=== PATIENT | female | born 1960 | race Caucasian/White ===

== ENCOUNTER 2024-12-31 11:38 | Inpatient (IN) | payer MEDICAID ==
[~2024-12-31] VITALS: Ht 157.5 cm; Wt 45.4 kg
[~2024-12-31 11:38] MED LIST: ATOR10TA PO; BACL10TA2 PO; HYDR-4383 PO; OMEP20CA15 PO; ZOLP5TAB8 PO
[2024-12-31 12:37] LABS: BASOPHILS # (AUTO) 0.1 X10'3 (0-0.2); BASOPHILS % (AUTO) 0.7 % (0-1); EOSINOPHILS % (AUTO) 0.4 % (0-6); HEMATOCRIT 43.4 % (35.0-45.0); HEMOGLOBIN 14.5 g/dl (12.0-16.0); LYMPHOCYTES # (AUTO) 2.1 X10'3 (1.1-4.8); LYMPHOCYTES % (AUTO) 21.8 % (21-51); MEAN CORPUSCULAR HEMOGLOBIN 29.8 PG (27.0-31.0); MEAN CORPUSCULAR HGB CONC 33.4 g/dL (33.0-36.5); MEAN CORPUSCULAR VOLUME 89.4 FL (78-98); MEAN PLATELET VOLUME 10.1 FL (7.4-10.4); MONOCYTES # (AUTO) 0.7 X10'3 (0-0.9); MONOCYTES % (AUTO) 7.2 % (2-12); NEUTROPHILS # (AUTO) 6.8 X10'3 (1.8-7.7); NEUTROPHILS % (AUTO) 69.9 % (42-75); PLATELET COUNT 290 X10'3 (140-440); RED BLOOD COUNT 4.86 X10'6 (4.20-5.60); RED CELL DISTRIBUTION WIDTH 13.9 % (11.5-14.5); WHITE BLOOD COUNT 9.7 X10'3 (4.5-11.0)
[2024-12-31 12:48] LABS: ALANINE AMINOTRANSFERASE 25 U/L (12-78); ALBUMIN 3.9 G/DL (3.4-5.0); ALBUMIN/GLOBULIN RATIO 1.4 (1.1-1.5); ALKALINE PHOSPHATASE 117 IU/L (46-116); ANION GAP 7 (8-16); ASPARTATE AMINO TRANSFERASE 15 U/L (10-37); BILIRUBIN,TOTAL 0.5 MG/DL (0.1-1.0); BLOOD UREA NITROGEN 13 MG/DL (7-18); BUN/CREATININE RATIO 15.3 (10.0-20.0); CALCIUM 10.7 MG/DL (8.5-10.1); CHLORIDE 104 MMOL/L (99-107); CREATININE 0.85 MG/DL (0.40-0.90); GLUCOSE 120 MG/DL (70-104); LIPASE 90 U/L (16-77); SODIUM 141 MMOL/L (135-145); TOTAL CARBON DIOXIDE 30.3 MMOL/L (24-32); TOTAL PROTEIN 6.7 G/DL (6.4-8.2); eCRCL 48 ML/MIN; eGFR 67 ML/MIN
--- NOTE | 2024-12-31 13:12 | Physician Documentation ---
History of Present Illness Chief Complaint: Abdominal Pain Stated Complaint: ABDOMINAL PAIN Time Seen by MD: 12:23 Primary Medical Doctor: endy Mode of Arrival: POV HPI 64-year-old female history of tobacco use disorder 50 pack-year history presenting for abdominal pain. She reports epigastric pain radiating through to her back which follows eating. This has been ongoing persistent for the last 3 weeks. She was started on Prilosec by your PCP and has had no improvement in her symptoms. She has no history of similar. She also reports 7 lb weight loss over the last 2 weeks Medication Reconciliation Allergies: Coded Allergies: No Known Allergies (Unverified , 02/12/15) Scheduled Atorvastatin Calcium (Lipitor), 1 TAB PO DAILY, (Reported) Omeprazole (Omeprazole), 1 CAP PO DAILY, (Reported) Discontinued Medications Atorvastatin Calcium (Lipitor), Unknown Dose PO DAILY, (Reported) Discontinued Reason: Other Baclofen (Baclofen), 1 TAB PO DAILY, (Reported) Discontinued Reason: patient no longer taking Hydrocodone/Acetaminophen (Outlook 5-325 Tablet), 1 TABLET PO TID, (Reported) Discontinued Reason: patient no longer taking Zolpidem Tartrate* (Ambien*), 1 TAB PO HS PRN for sleep, (Reported) Discontinued Reason: patient no longer taking Review of Systems All Other Systems at this time: Reviewed and Negative Physical Exam Vital Signs: Temperature: 97.9, Source: Oral, Heart Rate: 84, Respiratory Rate: 16, BP: 142/85, Pulse Oximetry: 97, Weight: 45.400 Oxygen Flow Rate: 0 Physical Exam Epigastric tenderness to palpation. No guarding no rebound Neuro awake alert oriented Progress Progress Note Labs independently interpreted show mildly elevated lipase normal LFTs Results/Orders Reviewed/noted all lab results: Yes Results/Orders Orders - JOSE MOHAMUD MD Urinalysis, Cult If Indicated (12/31/24 12:03) Hcg, Ur Ql (12/31/24 12:03) Completed Orders - JOSE MOHAMUD MD Cbc/Diff (12/31/24 12:03) BMP (12/31/24 12:03) Lipase (12/31/24 12:03) CMP (12/31/24 12:03) Vital Signs 5/17/25 5/17/25 5/17/25 11:57 12:24 12:33 Temp 97.9 Pulse 98 84 Resp 18 16 16 B/P (MAP) 135/73 142/85 (104) Pulse Ox 98 97 O2 Flow Rate 0 Laboratory Tests Test 12/31/24 12:17 White Blood Count 9.7 Red Blood Count 4.86 Hemoglobin 14.5 Hematocrit 43.4 Mean Corpuscular Volume 89.4 Mean Corpuscular Hemoglobin 29.8 Mean Corpuscular Hemoglobin Concent 33.4 Red Cell Distribution Width 13.9 Platelet Count 290 Mean Platelet Volume 10.1 Neutrophils (%) (Auto) 69.9 Lymphocytes (%) (Auto) 21.8 Monocytes (%) (Auto) 7.2 Eosinophils (%) (Auto) 0.4 Basophils (%) (Auto) 0.7 Neutrophils # (Auto) 6.8 Lymphocytes # (Auto) 2.1 Monocytes # (Auto) 0.7 Eosinophils # (Auto) 0.0 Basophils # (Auto) 0.1 CBC Comment Sodium Level 141 Potassium Level 4.0 Chloride Level 104 Carbon Dioxide Level 30.3 Anion Gap 7 L Blood Urea Nitrogen 13 Creatinine 0.85 Estimated GFR/1.73 m2 67 BUN/Creatinine Ratio 15.3 Glucose Level 120 H Calcium Level 10.7 H Total Bilirubin 0.5 Aspartate Amino Transf (AST/SGOT) 15 Alanine Aminotransferase (ALT/SGPT) 25 Alkaline Phosphatase 117 H Total Protein 6.7 Albumin 3.9 Globulin 2.8 Albumin/Globulin Ratio 1.4 Lipase 90 H Chemistry Comments Re-Evaluation Re-Evaluation : Progress Consulted hospitalist who agreed with plan for admission EKG/XRAY/CT/US/VASC/MRI CT : Impression Independently interpreted CT abdomen and pelvis, peripancreatic haziness and mass of pancreas Medical Decision Making Additional Comments Pancreatitis, cholecystitis, pancreatic mass Departure Disposition: ADMITTED INPATIENT Admitted to Inpatient Unit: to hospitalist Impression: Primary Impression: Pancreatic mass Referrals: NO PRIMARY CARE PROVIDER (PCP) Signature Scribe Signature: No scribe Attestation: No scribe JOSE MOHAMUD MD December 31, 2024 13:12
[2024-12-31 14:28] LABS: BILIRUBIN,URINE NEGATIVE (Neg); CLARITY,URINE SLIGHTLY CLOUDY (Clear); COLOR,URINE YELLOW (Yellow); GLUCOSE, URINE NEGATIVE (Neg); KETONES,URINE TRACE mg/dl (Neg); LEUKOCYTE ESTERASE ,URINE NEGATIVE (Neg); NITRITES, URINE NEGATIVE (Neg); OCCULT BLOOD,URINE NEGATIVE (Neg); PH,URINE 6.5 (4.8-8.0); PROTEIN,URINE NEGATIVE (Neg); URINE HCG NEGATIVE (NEG); UROBILINOGEN,URINE 0.2 E.U/dL (0.2-1.0)
[2024-12-31 14:31] LABS: UA COLLECTION TYPE NON-SPECIFIED
[2024-12-31 14:40] LABS: BACTERIA,URINE FEW /HPF (Neg); MUCUS STRANDS NONE SEEN /LPF (Neg); RBC,URINE 0-2 /HPF (0-2); SQUAMOUS EPITHELIAL CELL,UR FEW /LPF (FEW); WBC,URINE 0-4 /HPF (0-4)
[2024-12-31 14:41] LABS: AMORPHOUS URATES 2+
[2024-12-31] MEDS: ketorolac trometh 15mg/ml vial 15 MG/ML ML IV ONE (15:27)
--- NOTE | 2024-12-31 15:55 | RADIOLOGY REPORT ---
INDICATION: abdominal pain TECHNIQUE: Multiple real-time sonographic images of the right upper quadrant abdomen were obtained. COMPARISON: None FINDINGS: Liver is homogenous in echogenicity. The liver measures 13.0 cm. No intrahepatic biliary ductal dilatation is noted. The gallbladder wall measures 0.2 cm and is unremarkable. No gallstones or gallbladder sludge. No pericholecystic fluid or edema. The common duct measures 0.6 cm and is unremarkable. The right kidney measures 9.0 cm. No hydronephrosis. The pancreas is not well visualized due to obscuration from bowel gas. The visualized portions of the IVC and aorta are grossly unremarkable. IMPRESSION: 1. Normal exam of the abdomen.
[2024-12-31] MEDS ORDERED: iohexol 300mg/ml 100ml inj. ONE (16:12)
--- NOTE | 2024-12-31 17:56 | RADIOLOGY REPORT ---
Exam: CT CT ABDOMEN PELVIS W/ IV CONTRAST History: abdominal pain Comparison Study: None TECHNIQUE: Multidetector CT of the abdomen was performed from lung bases to pubic symphysis. Imaging was performed with IV contrast. Axial, coronal and sagittal multiplanar reformats were obtained from the axial data set by the technologist. Radiation Dose Information: CT Dose: CTDI volume is 5.59 mGy. Dose-length product is 256.62 mGy*cm FINDINGS: Bibasilar atelectasis. Partially visualized heart is unremarkable. Nonspecific area of hypodensity within the left hepatic lobe adjacent to the falciform ligament. Oth erwise, liver, spleen, gallbladder, and adrenal glands unremarkable. Ill-defined Area of hypodensity measuring about 3.5 x 3.3 x 3.5 cm partially involving the uncinate of the pancreas and partially ove rlying the adjacent duodenum with fat stranding adjacent to the distal duodenum. There is subtle hete rogeneous area the uncinate measuring about 2.6 x 2.3 cm which is better appreciated on the coronal v iew. Subcentimeter hypodense left renal lesion that is too small to characterize. Scarring of the lower po le of the right kidney with associated adjacent coarse calcification. Ureters and urinary bladder unr emarkable. Uterus and adnexa unremarkable. Mild gastric wall thickening. Fat stranding adjacent to the distal duodenum. With a moni ill-defined hypodensity partially involving the uncinate process extending over to the adjacent duodenum. Mild wall thickening of proximal jejunum. The remainder of the small bowel loops unremarkable. The ap pendix is unremarkable. Sigmoid diverticulosis without diverticulitis. Mild wall thickening of the si gmoid with adjacent fat stranding/ edema. No evidence of intraperitoneal free air. No evidence of aortic aneurysm or dissection. [id number] atherosclerotic calcification of the aorta with mild atherosclerotic calcification of bilateral iliacs. No significant lymphadenopathy. The soft tissues are unremarkable. No destructive osseous lesions are noted. IMPRESSION: Ill-defined Area of hypodensity measuring about 3.5 x 3.3 x 3.5 cm partially involving the uncinate o f the pancreas and partially overlying the adjacent duodenum with fat stranding adjacent to the dista l duodenum and subtle heterogeneous area overthe uncinate measuring about 2.6 x 2.3 cm. Finding may r epresent neoplasm of the uncinate with associated stranding.MRI with contrast is recommended for furt her evaluation. Mild wall thickening of the stomach and proximal jejunum which may be due to inadequate distention wi th gastroenteritis not excluded. Sigmoid diverticulosis with mild wall thickening of the sigmoid and adjacent edema. Correlate for si gmoiditis/diverticulitis.
[2024-12-31] MEDS: ringers solution, lacted 1,000 ML IV ONE (18:18)
[2024-12-31] MEDS ORDERED: ATOR20TA PO (19:58)
[2024-12-31] MEDS ORDERED: morphine 2 MG/ML inj. syringe IV PRN (20:25)
[2024-12-31] MEDS ORDERED: potassium Cl 40MEQ/1/2NS 520ml 520 ML IV PRN (20:25)
[2024-12-31] MEDS ORDERED: ondansetron/PF 4mg/2ml inj IV PRN (20:25)
[2024-12-31] MEDS ORDERED: magnesium hydroxide 30ml (MOM) UD suspension PO PRN (20:25)
[2024-12-31] MEDS ORDERED: magnesium sulf-water 4G/100mL 100 ML IV PRN (20:25)
[2024-12-31] MEDS ORDERED: magnesium sulf-water 2g/50mL 50 ML IV PRN (20:25)
[2024-12-31] MEDS ORDERED: mag hydrox/Alum hydrox/simeth 30ml oral suspension PO PRN (20:25)
[2024-12-31] MEDS ORDERED: magnesium Cl slow-release 64mg tablet PO PRN (20:25)
[2024-12-31] MEDS ORDERED: potassium Cl 20 mEq SR tablet PO PRN ×2 (20:25)
[2024-12-31] MEDS ORDERED: acetaminophen 325mg tablet PO PRN (20:25)
[2024-12-31] MEDS: ringers solution, lacted 1,000 ML IV SCH (20:36)
--- NOTE | 2024-12-31 20:39 | HISTORY AND PHYSICAL-Residence ---
History & Physical Providers to CC Resident Creating Document: LEXII BEAL, RES ~ History of Present Illness Primary Medical Doctor: endy Reason for Admit\Complaint: Pancreatitis/pancreatic carcinoma History of Present Illness This is a 64-year-old female with past medical history of GERD, came to the ER with a chief complaint of nausea, vomiting and abdominal pain. The nausea and vomiting started about four weeks ago, initially had about two episodes per day, now reduced to one episode in two days, contains mostly food particles and water, usually occurs within 15 minutes after eating. The abdominal pain also started around the same time, located in the epigastric region. She described the pain as crampy type, intermittent, graded6/10, occurs mostly after eating or drinking something. The pain started radiating to the back in the last 3-4 days. About two weeks ago she visited her PCP, blood and stool test was done which were apparently normal. It was thought that the pain was likely secondary to GERD. Denied any diarrhea, fever. Denied any recent travel history, contact with sick people. Denied any generalized pruritus, pale stools, dark urine. Reported that in July of last year she had similar symptoms of nausea, vomiting and abdominal pain for a week which resolved spontaneously. She also lost about 8 lbs weight in the last month. Also reports weakness and fatigue. Allergies: Coded Allergies: No Known Allergies (Unverified , 02/12/15) Home Medications Home Medications Active Reported Lipitor (Atorvastatin Calcium) 20 Mg Tablet 1 Tab PO DAILY Omeprazole 20 Mg Capsule.dr 1 Cap PO DAILY Past Medical History Past Medical History GERD Hyperlipidemia Past Surgical History Surgical History Comment C section Family History Family History: FH: breast cancer MOTHER Past Social History Social History Comment Started smoking at the age of 12-13 years, previously smoked about a pack a day, currently reduced to five cigarettes a day Quit drinking alcohol in 2008, was a heavy drinker up to 1993, was an occasional drinker from [id number]. Smokes marijuana on a daily basis. Denies any other drug usage. Lives alone, functionally independent, her eldest son lives in [place]. Currently working. ROS All Other Systems: Reviewed and Negative Constitutional: Reports: weakness Eyes: Denies: no symptoms reported, see HPI, pain, discharge, blurred vision, double vision, itching, photophobia, redness, tearing, other ENT: Denies: no symptoms reported, see HPI, ear pain, ear bleeding, ear discharge, hearing loss, ear ringing, nose pain, nose bleeding, nose congestion, nose discharge, throat pain, throat swelling, voice change, mouth pain, mouth bleeding, mouth swelling, other Respiratory: Denies: no symptoms reported, see HPI, cough, orthopnea, shortness of breath, SOB with exertion, SOB at rest, stridor, wheezing, hemoptysis, pain with breathing, other Cardiovascular: Denies: no symptoms reported, see HPI, chest pain, left arm pain, diaphoresis, lightheadedness, syncope, edema, palpitations, irregular heart rate, other Gastrointestinal: Reports: abdominal pain, nausea, vomiting Genitourinary: Denies: no symptoms reported, see HPI, burning, discharge, dysuria, frequency, flank pain, hematuria, incontinence, pain, decreased urine output, urgency, other Female Genitalia: Denies: no reported symptoms, see HPI, vaginal discharge, vaginal pain, pelvic pain, abnormal bleeding, dyspareunia, , other Neurological: Denies: no symptoms reported, see HPI, speech problem, headache, dizziness, fainting, tingling, left sided numbness, right sided numbness, left sided weakness, right sided weakness, problems walking, unable to move lower ext, unable to move upper ext, petit mal seizures, tonic-clonic seizures, cognitive dysfunction, other Musculoskeletal: Denies: no symptoms reported, see HPI, pain, swelling, back pain, gout, joint pain, joint swelling, muscle pain, muscle swelling, muscle stiffness, neck pain, other Exam Vitals: Vital Signs Date Time Temp Pulse Resp B/P (MAP) Pulse Ox O2 Delivery O2 Flow Rate FiO2 12/31/24 19:46 64 16 155/76 (102) 95 12/31/24 18:24 98.1 0 General: General: Awake and Alert, no acute distress. HEENT: Conjunctiva pink, Sclera clear, Mucus Membranes moist. Resp: Unlabored. Bilateral breath sounds are clear Heart: Regular Rate and rhythm, normal S1 and S2, no murmur Abdomen: Soft, tenderness present in the epigastric region, no guarding, no rigidity, normal bowel sounds. Extremities: No pedal edema, no cyanosis, no clubbing SENIOR PHARMACY TECHNICIAN: Conscious, coherent, alert and oriented x4. No motor or sensory deficits noted. No motor drift noted. No cranial nerve deficits noted. Skin: Warm and Dry. No jaundice Diagnostic Data Last Recorded Lab Results: 12/31/24 1217 12/31/24 1217 Advance Care Planning Advanced Care plannin - 30 Minutes (I spent 17 minutes in discussing various resuscitative measures, the patient chose to be full code.) Additional Plan Assessment This is a 64-year-old female with a history of GERD, chronic smoking came to the ER with a chief complaint of abdominal pain radiating to back, nausea, vomiting. Lipase levels are elevated, abdominal CT showed mass in the uncinate process of pancreas. Patient is being admitted for possible pancreatitis/pancreatic cancer. Plan Acute pancreatitis Pancreatic adenocarcinoma. Lipase level 90. Alkaline phosphatase 117 Abdominal ultrasound did not show any significant findings Abdomen/pelvis CT hypodensity measuring about 3.5 x 3.3 x 3.5 cm partially involving the uncinate of the pancreas.subtle heterogeneous area overthe uncinate measuring about 2.6 x 2.3 cm.Finding may represent neoplasm of the uncinate with associated stranding. MRI with contrast ordered. Received 1 L of LR in the ER. Started on LR@ 100 mL/hour Started on clear liquid diet. Pain management-morphine p.r.n. History of GERD Started on pantoprazole 40 mg IV daily Hyperlipidemia Continue patient's home medication atorvastatin. Code status: Full code DVT prophylaxis: Lovenox GI prophylaxis: Pantoprazole Lines/tubes: Peripheral IV Diet: Clear liquid diet Prognosis: Poor Lexii Beal M.D PGY1 Patient seen and evaluated using [facility] complaint AV device Discussed with the resident Agree with the plan as discussed with the resident. Cl Torres MD Date of Service: December 31, 2024 Billing Provider: CL TORRES MD, PRAVAHIKA, ELVIN December 31, 2024 20:39 CL TORRES MD January 01, 2025 02:29
[2024-12-31] MEDS: morphine 2 MG/ML inj. syringe IV PRN (20:59)
[2024-12-31 21:04] LABS: MAGNESIUM 2.2 MG/DL (1.5-2.4)
[2024-12-31 21:10] LABS: HEMOGLOBIN A1C 5.8 % (4.5-6.2)
[2024-12-31 22:00] VITALS: BP 131/78; PULSE 70; RESP 16; TEMP 98.2; O2SAT 98
[2025-01-01 05:48] VITALS: RESP 16; O2SAT 98
[2025-01-01 06:00] VITALS: BP 126/85; PULSE 82; RESP 16; TEMP 97.7; O2SAT 96
[2025-01-01 06:02] LABS: BASOPHILS # (AUTO) 0.1 X10'3 (0-0.2); BASOPHILS % (AUTO) 0.9 % (0-1); EOSINOPHILS # (AUTO) 0.2 X10'3 (0-0.9); EOSINOPHILS % (AUTO) 1.7 % (0-6); HEMATOCRIT 40.2 % (35.0-45.0); HEMOGLOBIN 13.5 g/dl (12.0-16.0); LYMPHOCYTES # (AUTO) 2.2 X10'3 (1.1-4.8); LYMPHOCYTES % (AUTO) 24.4 % (21-51); MEAN CORPUSCULAR HEMOGLOBIN 29.7 PG (27.0-31.0); MEAN CORPUSCULAR HGB CONC 33.6 g/dL (33.0-36.5); MEAN CORPUSCULAR VOLUME 88.2 FL (78-98); MEAN PLATELET VOLUME 10.1 FL (7.4-10.4); MONOCYTES # (AUTO) 0.6 X10'3 (0-0.9); MONOCYTES % (AUTO) 6.5 % (2-12); NEUTROPHILS # (AUTO) 6.1 X10'3 (1.8-7.7); NEUTROPHILS % (AUTO) 66.5 % (42-75); PLATELET COUNT 253 X10'3 (140-440); RED BLOOD COUNT 4.56 X10'6 (4.20-5.60); RED CELL DISTRIBUTION WIDTH 13.7 % (11.5-14.5); WHITE BLOOD COUNT 9.2 X10'3 (4.5-11.0)
[2025-01-01 06:53] LABS: ALANINE AMINOTRANSFERASE 19 U/L (12-78); ALBUMIN 3.1 G/DL (3.4-5.0); ALBUMIN/GLOBULIN RATIO 1.3 (1.1-1.5); ALKALINE PHOSPHATASE 99 IU/L (46-116); ANION GAP 7 (8-16); ASPARTATE AMINO TRANSFERASE 17 U/L (10-37); BILIRUBIN,TOTAL 0.6 MG/DL (0.1-1.0); BLOOD UREA NITROGEN 7 MG/DL (7-18); BUN/CREATININE RATIO 10.9 (10.0-20.0); CALCIUM 9.4 MG/DL (8.5-10.1); CHLORIDE 107 MMOL/L (99-107); CHOL/HDL RATIO 2.3 (0.00-4.99); CHOLESTEROL 97 MG/DL (0-200); CREATININE 0.64 MG/DL (0.40-0.90); GLUCOSE 93 MG/DL (70-104); HDL CHOLESTEROL 42 MG/DL (35-60); LDL CHOLESTEROL 42 MG/DL (50-100); MAGNESIUM 1.9 MG/DL (1.5-2.4); POTASSIUM 3.8 MMOL/L (3.5-5.1); SODIUM 142 MMOL/L (135-145); TOTAL CARBON DIOXIDE 28.2 MMOL/L (24-32); TOTAL PROTEIN 5.5 G/DL (6.4-8.2); TRIGLYCERIDES 83 MG/DL (20-135); eCRCL 64 ML/MIN; eGFR > 90 ML/MIN
[2025-01-01] MEDS: atorvastatin 20mg tablet PO SCH (08:00)
[2025-01-01] MEDS: docusate sod 100mg capsule PO SCH (08:00)
[2025-01-01] MEDS: K and/or MAG REPLACEMENT MC SCH (08:00)
[2025-01-01] MEDS: enoxaparin 40mg/0.4ml syringe SUBCUT SCH (08:00)
[2025-01-01 08:32] VITALS: RESP 16; O2SAT 95
[2025-01-01] MEDS: pantoprazole 40 MG vial IV SCH (09:21)
[2025-01-01 10:30] VITALS: BP 151/74; PULSE 70; RESP 18; TEMP 98.1; O2SAT 96
--- NOTE | 2025-01-01 13:30 | RADIOLOGY REPORT ---
PROCEDURE: MR MRI ABDOMEN Indication: Pancreatic cancer COMPARISON: US ULTRASOUND OF ABDOMEN on DOS: 12/31/24, CT abdomen 12/31/2024 TECHNIQUE: Multiplanar multisequence images of the abdomen are obtained with and without contrast. FINDINGS: Ill-defined lesion near the pancreatic body /uncinate process region measuring 3.5 x 3.4 cm partially encasing the mid SMA. This lesion is slightly hypoenhancing relative to the rest of the hepatic pare nchyma. The pancreatic duct appears to be nondilated. Lesion appears centered in the mesentery just a djacent to the pancreatic body/ uncinate process/ 4th segment of the duodenum. There is mild edema wi thin the mesentery and surrounding the jejunal loops. Adrenal glands, spleen unremarkable. Kidneys demonstrate no hydronephrosis. Left renal cyst measurin g 7 mm. No T2 hyperintense lesions in the liver. No evidence for cholelithiasis. IMPRESSION: 1. Ill-defined lesion near the pancreatic body /uncinate process measuring 3.5 x 3.4 cm, again concer alma for pancreatic /mesenteric/small-bowel neoplasm. Recommend GI and surgical consultation for fur ther evaluation, and management. This partially encases the SMA. This can be further evaluated with e ndoscopic ultrasound 2. Pancreatic duct nondilated/ normal in caliber.
[2025-01-01] MEDS: GADOTERATE MEGLUMINE 7.5 MMOL/15 ML VIAL IV ONE (16:22)
--- NOTE | 2025-01-01 16:35 | PROGRESS NOTE ---
Daily Progress Note Providers to CC ~ Antibiotic Timeout Antibiotic Ordered?: No Subjective No acute events overnight. Patient examined at bedside. No new complaints not in acute distress. Patient reports abdominal pain but denies chest pain, sob, palpitations, n/v/d. Nausea and vomiting resolved. MRI abdomen shows lesions near pancreatic body measuring 3.5 x 3.4cm concerning for a pancreatic/mesenteric/small bowel neoplasm, partially encasing SMA. Case discussed with GI Dr. Spence, recommends for EUS. Pending referral to endoscopy center for evaluation. Objective Vital Signs Date Time Temp Pulse Resp B/P (MAP) Pulse Ox O2 Delivery O2 Flow Rate FiO2 01/01/25 13:08 16 01/01/25 10:30 98.1 70 151/74 (99) 96 Room Air 01/01/25 08:32 0.0 Result Diagram: 01/01/25 0514 01/01/25 0514 Physical Exam General: Generalized weakness, A&Ox3, NAD HEENT: Normocephalic, PERRLA Neck: Supple, trachea midline, no JVD Chest: Clear to auscultation bilaterally Cardiovascular: RRR, S1&S2 GI: Tender upper quadrants of abdomen with palpation; negative rebound tenderness Extremities: No cyanosis/clubbing/or edema GROUP PROGRAM MANAGER: CN II-XII intact, no focal deficits Musculoskeletal: No paraspinal muscle tenderness, no muscle spasm Skin: Warm and intact Problem\Assessment\Plan This is a 64-year-old female with a history of HLD, GERD, chronic smoking came to the ER with a chief complaint of abdominal pain radiating to back, nausea, vomiting. Lipase levels are elevated, abdominal CT showed mass in the uncinate process of pancreas. Patient is being admitted for possible pancreatitis/pancreatic cancer. # Acute pancreatitis # Pancreatic adenocarcinoma -CT shows hypodensity measuring about 3.5 x 3.3 x 3.5 cm partially involving the uncinate of the pancreas.subtle heterogeneous area overthe uncinate measuring about 2.6 x 2.3 cm.Finding may represent neoplasm of the uncinate with associated stranding. -MRI shows lesions near pancreatic body measuring 3.5x3.4cm concerning for a pancreatic/mesenteric/small bowel neoplasm, partially encasing SMA. Pending referral to endoscopy center for evaluation. # Hyperlipidemia -LDL 42, continue home statin Code status: Full code DVT/VTE Prophylaxis: Lovenox Date of Service: January 01, 2025 Billing Provider: LUI PLAZA Common Visit Codes: [id number] INP/OBS CARE(HIGH) LUI PLAZA January 01, 2025 16:35
[2025-01-01 18:00] VITALS: BP 146/77; PULSE 82; RESP 16; TEMP 98; O2SAT 96
[2025-01-01 22:00] VITALS: BP 136/65; PULSE 86; RESP 20; TEMP 98.2; O2SAT 95
[2025-01-02 06:55] VITALS: BP 144/69; PULSE 78; RESP 18; TEMP 97.9; O2SAT 93
[2025-01-02 06:59] LABS: BASOPHILS # (AUTO) 0.1 X10'3 (0-0.2); EOSINOPHILS # (AUTO) 0.1 X10'3 (0-0.9); EOSINOPHILS % (AUTO) 1.6 % (0-6); HEMATOCRIT 41.4 % (35.0-45.0); HEMOGLOBIN 13.9 g/dl (12.0-16.0); LYMPHOCYTES # (AUTO) 1.7 X10'3 (1.1-4.8); LYMPHOCYTES % (AUTO) 23.4 % (21-51); MEAN CORPUSCULAR HEMOGLOBIN 29.9 PG (27.0-31.0); MEAN CORPUSCULAR HGB CONC 33.6 g/dL (33.0-36.5); MEAN CORPUSCULAR VOLUME 88.8 FL (78-98); MEAN PLATELET VOLUME 9.6 FL (7.4-10.4); MONOCYTES # (AUTO) 0.5 X10'3 (0-0.9); MONOCYTES % (AUTO) 7.5 % (2-12); NEUTROPHILS # (AUTO) 4.8 X10'3 (1.8-7.7); NEUTROPHILS % (AUTO) 66.5 % (42-75); PLATELET COUNT 250 X10'3 (140-440); RED BLOOD COUNT 4.66 X10'6 (4.20-5.60); RED CELL DISTRIBUTION WIDTH 13.6 % (11.5-14.5); WHITE BLOOD COUNT 7.2 X10'3 (4.5-11.0)
[2025-01-02 07:33] LABS: ALANINE AMINOTRANSFERASE 21 U/L (12-78); ALBUMIN 3.1 G/DL (3.4-5.0); ALBUMIN/GLOBULIN RATIO 1.2 (1.1-1.5); ALKALINE PHOSPHATASE 106 IU/L (46-116); ANION GAP 6 (8-16); ASPARTATE AMINO TRANSFERASE 14 U/L (10-37); BILIRUBIN,TOTAL 0.5 MG/DL (0.1-1.0); BLOOD UREA NITROGEN 4 MG/DL (7-18); BUN/CREATININE RATIO 8.3 (10.0-20.0); CALCIUM 9.5 MG/DL (8.5-10.1); CHLORIDE 106 MMOL/L (99-107); CREATININE 0.48 MG/DL (0.40-0.90); GLUCOSE 93 MG/DL (70-104); MAGNESIUM 1.9 MG/DL (1.5-2.4); POTASSIUM 3.9 MMOL/L (3.5-5.1); SODIUM 140 MMOL/L (135-145); TOTAL CARBON DIOXIDE 27.6 MMOL/L (24-32); TOTAL PROTEIN 5.6 G/DL (6.4-8.2); eCRCL 85 ML/MIN; eGFR > 90 ML/MIN
[2025-01-02] MEDS ORDERED: HYDR-3965 PO (10:03)
--- NOTE | 2025-01-02 13:31 | DISCHARGE SUMMARY ---
Discharge Summary Providers to CC ~ Discharge Summary Admission Diagnosis: pancreatic carcinoma Hospital Course DATE OF ADMISSION: 12/31/24 DATE OF DISCHARGE: 01/02/25 Discharge Diagnosis\\Comment: Pancreatic adenocarcinoma Acute pancreatitis Hyperlipidemia Operations\\Procedures: None Consultants: GI Dr. Pierre Complications: None Condition on DC: Stable New Medications: Hydrocodone Bit/Acetaminophen 5/325 MG (Jeddo 5/325 MG) 5 Mg/325 Mg Tablet 1 TAB PO Q8H PRN for moderate or severe pain for 3 Days, #9 TAB Continued Medications: Atorvastatin Calcium (Lipitor) 20 Mg Tablet 1 TAB PO DAILY, TAB 0 Refills Discontinued Medications: Omeprazole (Omeprazole) 20 Mg Capsule.dr 1 CAP PO DAILY, #30 CAP 5 Refills Discharge Summary: History of Present Illness From H&P: Nora Doyle is a "64-year-old female with past medical history of GERD, came to the ER with a chief complaint of nausea, vomiting and abdominal pain. Nausea and vomiting started about four weeks ago, initially had about two episodes per day, now reduced to one episode in two days, contains mostly food particles and water, usually occurs within 15 minutes after eating. The abdom inal pain also started around the same time, located in the epigastric region. She described the pain as crampy type, intermittent, graded6/10, occurs mostly after eating or drinking something. The pain started radiating to the back in the last 3-4 days. About two weeks ago she visited her PCP, blood and stool test was done which were apparently normal. It was thought that the pain was likely secondary to GERD. Denied any diarrhea, fever. Denied any recent travel history, contact with sick people. Denied any generalized pruritus, pale stools, dark urine. Reported that in July of last year she had similar symptoms of nausea, vomiting and abdominal pain for a week which resolved spontaneously. She also lost about 8 lbs weight in the last month. Also reports weakness and fatigue." Hospital Course Gastric findings were notable for elevated lipase combined with abdominal pain, CT indicating lesions measuring approximately 3.5 x 3.3 x 3.5 cm partially involving the uncinate of the pancreas.subtle heterogeneous area over the uncinate measuring about 2.6 x 2.3 cm that suggest neoplasm. Subsequent MRI revealed consistent findings of lesions near pancreatic body measuring 3.5 x 3.4cm concerning for a pancreatic/mesenteric/small bowel neoplasm, partially encasing SMA. Patient was treated with intravenous fluids and supportive care. Case discussed with on-call GI Dr. Pierre. Patient's reported abdominal pain improved and nausea and vomiting resolved. Patient requires endoscopic ultrasound which can be done at the endoscopy center. Patient did not experience further complications throughout the entire hospital stay. Patient was seen and examined on the day of discharge. On day of discharge, vss and labs unremarkable. All labs, diagnostic workups, discharge plan discussed with patient in details during visit before discharge. All questions and concerns answered to the best of my professional knowledge. Patient is to be discharged to home to self and to follow-up with PCP, GI Dr. Pierre, and at endoscopy center for biopsy within 2 weeks. Physical Exam General: A&Ox3, NAD HEENT: Normocephalic, PERRLA Neck: Supple, trachea midline, no JVD Chest: Clear to auscultation bilaterally Cardiovascular: RRR, S1&S2 GI: Mildly tender upper quadrants of abdomen with palpation; negative rebound tenderness Extremities: No cyanosis/clubbing/or edema CATHETER FINISHER AND INSPECTOR: CN II-XII intact, no focal deficits Musculoskeletal: No paraspinal muscle tenderness, no muscle spasm Skin: Warm and intact *Problems/Diagnosis: (1) Pancreatic mass Status: Acute Total Time Spent on D/C: > 30 Minutes Date of Service: January 02, 2025 Billing Provider: LUI PLAZA Common Visit Codes: [id number] DISCH DAY >30min LUI PLAZA January 02, 2025 13:31
== END 2025-01-02 12:20 | disposition home or self-care (01) | DRG 282 ==
LOC: ER 11:38 → ED HOLD 19:51 → SUR 3N 21:12
PROVIDERS: ADMIT Internal Medicine Critical Care Medicine; ATTEND Nurse Practitioner Family
PROC: BW211ZZ Computerized Tomography (CT Scan) of Abdomen and Pelvis using Low Osmolar Contrast (ICD-10-PCS; principal; 2024-12-31)
DX: K85.90 Acute pancreatitis without necrosis or infection, unspecified (principal); C25.9 Malignant neoplasm of pancreas, unspecified; E78.5 Hyperlipidemia, unspecified; K21.9 Gastro-esophageal reflux disease without esophagitis; Z79.899 Other long term (current) drug therapy
CPT/HCPCS: 36415; 74177; 74183; 76700; 80053; 80061; 81001; 81025; 83036; 83605; 83690; 83735; 85025; 87081; 96361; 96374; 97116; 97161; 97530; 99285; G0378; J1650; J1885; J2270; J2470; J7120; Q9967